=== PATIENT | male | born 1940 | race Caucasian/White ===

== ENCOUNTER 2021-08-25 12:36 | Emergency (ER) | payer MEDICARE ==
[2021-08-25] MEDS ORDERED: Lidocaine/Epineph/Tetracaine 3 ML Syringe TOP ONE (14:06)
== END 2021-08-25 16:33 | disposition home or self-care (01) ==
LOC: JP.ED 12:36
DX: S41.112A Laceration without foreign body of left upper arm, initial encounter (principal); I10 Essential (primary) hypertension; Z79.899 Other long term (current) drug therapy; Z79.82 Long term (current) use of aspirin; W18.40XA Slipping, tripping and stumbling without falling, unspecified, initial encounter
CPT/HCPCS: 12002; 99281; 99282-25; A9270-GY